=== PATIENT | male | born 1960 | race African-American/Black ===

== ENCOUNTER 2017-08-17 19:48 | Emergency (ER) | payer MEDICARE, MEDICAID ==
[~2017-08-17] VITALS: Ht 182.9 cm; Wt 82.0 kg
[~2017-08-17 19:48] MED LIST: ACET-2178 PO; FOLI-43 PO; HYDR-3513 PO; MULT-1146 PO; OXYCODONE; PRO STAT PO; TEMA15CA PO; VITAMIN C
[2017-08-17] MEDS ORDERED: SODIUM CHLORIDE 0.9% 1,000 ML IV ONE (20:45)
[2017-08-17 21:39] LABS: CHLORIDE 107 mEq/L (98-107)
[2017-08-17 21:45] LABS: CARBON DIOXIDE 22 mEq/L (21-32)
[2017-08-17 21:54] LABS: HEMOGLOBIN. 7.1 g/dL (14.0-18.0); MEAN CORPUSCULAR HEMOGLOBIN 36.1 pg (28.0-32.0); MEAN CORPUSCULAR VOLUME 102.3 fL (80.0-94.0); PLATELET 127 x1000/uL (130-400); RED BLOOD CELL COUNT 1.98 mill/uL (4.7-6.1); RED CELL DISTRIBUTION WIDTH 25.7 % (11.6-14.6)
[2017-08-17 22:04] LABS: HEMATOCRIT. 20.2 % (42.0-52.0)
[2017-08-17 22:12] LABS: NUCLEATED RED BLOOD CELLS 8 /100 WBC; PLATELET ESTIMATE DECREASED
[2017-08-17] MEDS ORDERED: ONDANSETRON HCL 4MG/2ML VIAL IM ONE (23:30)
[2017-08-17] MEDS ORDERED: MORPHINE SULFATE 4 MG/ML CPJ (NOT FOR IM USE) IV ONE (23:30)
[2017-08-17] MEDS ORDERED: MORPHINE SULFATE 10 MG/ML CPJ IV NR (23:45)
[2017-08-18 02:20] LABS: CLARITY URINE CLEAR (CLEAR); COLOR URINE DARK YELLOW (YELLOW); GLUCOSE URINE NEGATIVE (NEGATIVE); KETONES URINE NEGATIVE (NEGATIVE); LEUKOCYTE ESTERASE URINE NEGATIVE (NEGATIVE); NITRITE URINE NEGATIVE (NEGATIVE); OCCULT BLOOD URINE NEGATIVE (NEGATIVE); PH URINE 6.5 (4.5-8.0); PROTEIN URINE NEGATIVE (NEGATIVE)
[2017-08-18] MEDS ORDERED: HYDROCODONE/APAP 7.5/325MG 1 TAB TABLET PO ONE (03:15)
[2017-08-18 05:30] VITALS: BP 141/86
== END 2017-08-18 06:06 | disposition home or self-care (01) ==
LOC: ER 20:35
DX: D57.00 Hb-SS disease with crisis, unspecified (principal); G89.29 Other chronic pain; L97.129 Non-pressure chronic ulcer of left thigh with unspecified severity; L97.119 Non-pressure chronic ulcer of right thigh with unspecified severity
CPT/HCPCS: 36415; 71010; 80048; 80076; 81001; 83605; 83615; 85007; 85027; 85044; 87040; 96361; 96372; 96374; 99285; J2270; J2405; J7030